=== PATIENT | male | born 1965 | race Caucasian/White ===

== ENCOUNTER 2021-03-13 15:18 | Emergency (ER) | payer BC ==
[~2021-03-13] VITALS: Ht 198.1 cm; Wt 93.9 kg
[2021-03-13 15:24] VITALS: BP 115/59
== END 2021-03-13 16:24 | disposition home or self-care (01) ==
LOC: ED 16:14
DX: U07.1 COVID-19 (principal)
CPT/HCPCS: 71045; 99284; U0003; U0005

== ENCOUNTER 2021-03-18 11:40 | Inpatient (IN) | payer BC ==
[~2021-03-18] VITALS: Ht 190.5 cm; Wt 92.2 kg
--- NOTE | 2021-03-18 12:11 | NUR ---
PORT PURSER: PT PLACED ON O2 IN THE LOBBY DUE TO SPO2 88%
[2021-03-18 13:24] LABS: BASOPHILS % (AUTO) 0 % (0-1); EOSINOPHILS % (AUTO) 0 % (1-7); LYMPHOCYTES % (AUTO) 3 % (22-44); MEAN CORPUSCULAR HEMOGLOBIN 31.1 pg (27.5-34.5); MEAN CORPUSCULAR HGB CONC 33.9 g/dL (33.2-36.2); MEAN PLATELET VOLUME 8.8 fL (7.4-10.4); MONOCYTES % (AUTO) 4 % (2-9); NEUTROPHILS % (AUTO) 93 % (42-75); PLATELET COUNT 260 x10^3/uL (130-400); RED BLOOD COUNT 5.12 x10^6/uL (4.38-5.82); RED CELL DISTRIBUTION WIDTH 13.7 % (9.4-14.8)
[2021-03-18 13:26] LABS: PLATELET (DIC) 253 x10^3/uL (130-400)
[2021-03-18 13:35] LABS: ALBUMIN 2.7 g/dL (3.4-5.0); ANION GAP 10 mmol/L (5-15); CALCIUM 8.8 mg/dL (8.5-10.1); CHLORIDE 102 mmol/L (98-107)
[2021-03-18 13:37] LABS: D-DIMER (DIC) 0.63 ug/mlFEU (0.00-0.52); PROTIME 10.9 Seconds (9.6-11.5); PTT 29 Seconds (25-31)
[2021-03-18 13:40] LABS: FIBRINOGEN > 713 mg/dL (200-340)
--- NOTE | 2021-03-18 13:40 | NUR ---
SUPPLY CHAIN INTERN: PT TO ROOM FROM LOBBY VIA W/C. PLACE ON 2L NC, AUTO PULSE OX AND AUTO BP.
--- NOTE | 2021-03-18 13:45 | NUR ---
THIS IS A 55 YO M DX W/ COVID LAST MONDAY. PT REPORTS MONITORING O2 SATS AT HOME, BECAME HYPOXIC TODAY 86-88% RA W/ INCREASED IN SOB. DENIES AN MEDICAL HX OR HOME MEDS. PT REQUIRING 2L NC TO MAINAIN O2 SAT >90%.
--- NOTE | 2021-03-18 13:50 | NUR ---
AT BEDSIDE. PT RESTING ON GURENY W/ CALL LIGHT IN REACH AND SIDE RAILS UPX2. RESP EVEN AND UNLABORED, YOUNG.
[2021-03-18 13:54] LABS: ALANINE AMINOTRANSFERASE 320 U/L (12-78); ALKALINE PHOSPHATASE 271 U/L (45-117); BILIRUBIN,TOTAL 1.3 mg/dL (0.2-1.0); CREATININE 1.06 mg/dL (0.7-1.3); TOTAL PROTEIN 7.8 g/dL (6.4-8.2)
[2021-03-18] MEDS ORDERED: DEXAMETHASONE 4 MG/ML, 1ML IV ONE (14:00)
[2021-03-18] MEDS ORDERED: DEXAMETHASONE 4 MG/ML, 5ML ONE (14:12)
--- NOTE | 2021-03-18 14:25 | NUR ---
RACHEL SPOUSE [phone] OK TO CALL W/ UPDATES.
--- NOTE | 2021-03-18 14:47 | NUR ---
REPOR TO [facility]AN [facility]. WILL CALL WHEN ROOM IS READY FOR PT. PT RESTING ON GURNEY W/ CALL LIGHT IN REACH AND SIDE RAILS UPX2. RESP EVEN AND UNLABORED, YOUNG.
[2021-03-18] MEDS ORDERED: REMDESIVIR 200 MG in SODIUM CHLORIDE 0.9% 100 ML IVPB ONE (15:00)
[2021-03-18] MEDS ORDERED: DEXAMETHASONE 4 MG/ML, 1ML IVPush SCH (15:30)
[2021-03-18] MEDS ORDERED: ENALAPRILAT 1.25 MG/ML, 2ML IVPush PRN (15:30)
[2021-03-18] MEDS ORDERED: ACETAMINOPHEN 325 MG TABLET PO PRN (15:30)
[2021-03-18 16:04] VITALS: BP 116/74
[2021-03-18] MEDS: DOXYCYCLINE 100MG TABLET PO SCH ×2 (17:33→21:43)
[2021-03-18] MEDS: ENOXAPARIN 40 MG/0.4 ML SQ SCH (17:34)
[2021-03-18] MEDS: CEFTRIAXONE 2 GM in DEXTROSE 5% 50 ML IVPB SCH (18:48)
[2021-03-18] MEDS: ASCORBIC ACID 500 MG TABLET PO SCH (18:50)
[2021-03-18] MEDS: ZINC SULFATE 220 MG CAPSULE PO SCH (18:50)
[2021-03-18] MEDS: CHOLECALCIFEROL 5,000u TAB PO SCH (18:50)
[2021-03-18 20:24] VITALS: BP 138/84
[2021-03-19] VITALS (7 sets, daily range): BP systolic 105–118; BP diastolic 66–73
[2021-03-19 05:59] LABS: CHLORIDE 102 mmol/L (98-107)
[2021-03-19 06:05] LABS: ALANINE AMINOTRANSFERASE 312 U/L (12-78); ALBUMIN 0.1 g/dL (3.4-5.0); ALKALINE PHOSPHATASE 283 U/L (45-117); ANION GAP 20 mmol/L (5-15); BILIRUBIN,TOTAL 0.8 mg/dL (0.2-1.0); TOTAL PROTEIN 6.7 g/dL (6.4-8.2)
[2021-03-19 06:30] LABS: CALCIUM 8.6 mg/dL (8.5-10.1)
[2021-03-19 08:44] LABS: BASOPHILS % (AUTO) 0 % (0-1); EOSINOPHILS % (AUTO) 0 % (1-7); LYMPHOCYTES % (AUTO) 5 % (22-44); MEAN CORPUSCULAR HEMOGLOBIN 31.5 pg (27.5-34.5); MEAN CORPUSCULAR HGB CONC 34.1 g/dL (33.2-36.2); MEAN PLATELET VOLUME 8.8 fL (7.4-10.4); MONOCYTES % (AUTO) 8 % (2-9); NEUTROPHILS % (AUTO) 87 % (42-75); PLATELET COUNT 285 x10^3/uL (130-400); RED BLOOD COUNT 4.82 x10^6/uL (4.38-5.82)
[2021-03-19 08:47] LABS: HCT (SEDRATE) 44.7 % (39.2-51.8)
[2021-03-19] MEDS: ZINC SULFATE 220 MG CAPSULE PO SCH (08:48)
[2021-03-19] MEDS: ASCORBIC ACID 500 MG TABLET PO SCH ×2 (08:48→17:52)
[2021-03-19] MEDS: CHOLECALCIFEROL 5,000u TAB PO SCH (08:49)
[2021-03-19] MEDS: DEXAMETHASONE 4 MG/ML, 1ML IVPush SCH (08:49)
[2021-03-19] MEDS: DOXYCYCLINE 100MG TABLET PO SCH ×2 (08:49→20:53)
[2021-03-19] MEDS ORDERED: DEXAMETHASONE 4 MG/ML, 1ML IVPush SCH (09:00)
[2021-03-19 09:14] LABS: D-DIMER 0.49 ug/mlFEU (0.00-0.52)
[2021-03-19] MEDS: ONDANSETRON 2MG/ML, 2ML IVPush PRN (09:16)
[2021-03-19 09:26] LABS: FIBRINOGEN > 713 mg/dL (200-340)
[2021-03-19] MEDS: REMDESIVIR 100 MG in SODIUM CHLORIDE 0.9% 100 ML IVPB SCH (15:06)
[2021-03-19] MEDS: ENOXAPARIN 40 MG/0.4 ML SQ SCH (15:07)
[2021-03-19] MEDS: CEFTRIAXONE 2 GM in DEXTROSE 5% 50 ML IVPB SCH (20:53)
[2021-03-20 00:08] VITALS: BP 102/64
[2021-03-20 06:36] LABS: CHLORIDE 104 mmol/L (98-107)
[2021-03-20 06:40] LABS: BASOPHILS % (AUTO) 0 % (0-1); EOSINOPHILS % (AUTO) 0 % (1-7); LYMPHOCYTES % (AUTO) 9 % (22-44); MEAN CORPUSCULAR HEMOGLOBIN 31.2 pg (27.5-34.5); MEAN CORPUSCULAR HGB CONC 33.8 g/dL (33.2-36.2); MEAN PLATELET VOLUME 9.2 fL (7.4-10.4); MONOCYTES % (AUTO) 11 % (2-9); NEUTROPHILS % (AUTO) 80 % (42-75); PLATELET COUNT 289 x10^3/uL (130-400); RED BLOOD COUNT 4.85 x10^6/uL (4.38-5.82); RED CELL DISTRIBUTION WIDTH 13.9 % (9.4-14.8)
[2021-03-20 06:48] LABS: ALANINE AMINOTRANSFERASE 199 U/L (12-78); ALBUMIN 2.3 g/dL (3.4-5.0); ALKALINE PHOSPHATASE 231 U/L (45-117); ANION GAP 9 mmol/L (5-15); BILIRUBIN,TOTAL 0.6 mg/dL (0.2-1.0); CALCIUM 8.9 mg/dL (8.5-10.1); CREATININE 0.94 mg/dL (0.7-1.3); HCT (SEDRATE) 44.9 % (39.2-51.8); TOTAL PROTEIN 6.7 g/dL (6.4-8.2)
[2021-03-20 06:49] LABS: D-DIMER 0.51 ug/mlFEU (0.00-0.52)
[2021-03-20 06:52] LABS: FIBRINOGEN > 713 mg/dL (200-340)
[2021-03-20 06:53] LABS: C-REACTIVE PROTEIN, QUANT 8.9 mg/dL (0.02-0.49)
[2021-03-20 07:37] VITALS: BP 110/68
[2021-03-20] MEDS: ASCORBIC ACID 500 MG TABLET PO SCH ×2 (07:44→16:17)
[2021-03-20] MEDS: DEXAMETHASONE 4 MG/ML, 1ML IVPush SCH (07:44)
[2021-03-20] MEDS: ZINC SULFATE 220 MG CAPSULE PO SCH (07:44)
[2021-03-20] MEDS: DOXYCYCLINE 100MG TABLET PO SCH ×2 (07:44→20:21)
[2021-03-20] MEDS: CHOLECALCIFEROL 5,000u TAB PO SCH (07:44)
[2021-03-20 12:48] VITALS: BP 97/61
[2021-03-20] MEDS: REMDESIVIR 100 MG in SODIUM CHLORIDE 0.9% 100 ML IVPB SCH (16:17)
[2021-03-20] MEDS: ENOXAPARIN 40 MG/0.4 ML SQ SCH (16:17)
[2021-03-20 16:25] VITALS: BP 111/68
[2021-03-20 19:16] VITALS: BP 103/67
[2021-03-20] MEDS: CEFTRIAXONE 2 GM in DEXTROSE 5% 50 ML IVPB SCH (20:21)
[2021-03-21 00:02] VITALS: BP 107/69
[2021-03-21 04:00] VITALS: BP 106/71
[2021-03-21 06:08] LABS: ALBUMIN 2.2 g/dL (3.4-5.0); ANION GAP 6 mmol/L (5-15); CALCIUM 8.6 mg/dL (8.5-10.1); CHLORIDE 105 mmol/L (98-107)
[2021-03-21 06:12] LABS: ALANINE AMINOTRANSFERASE 146 U/L (12-78); ALKALINE PHOSPHATASE 186 U/L (45-117); BILIRUBIN,TOTAL 0.5 mg/dL (0.2-1.0); CREATININE 0.74 mg/dL (0.7-1.3); TOTAL PROTEIN 6.5 g/dL (6.4-8.2)
[2021-03-21] MEDS: DOXYCYCLINE 100MG TABLET PO SCH ×2 (08:13→20:15)
[2021-03-21] MEDS: CHOLECALCIFEROL 5,000u TAB PO SCH (08:13)
[2021-03-21] MEDS: ZINC SULFATE 220 MG CAPSULE PO SCH (08:13)
[2021-03-21] MEDS: ASCORBIC ACID 500 MG TABLET PO SCH ×2 (08:13→17:29)
[2021-03-21] MEDS: DEXAMETHASONE 4 MG/ML, 1ML IVPush SCH (08:14)
[2021-03-21 08:17] VITALS: BP 108/70
[2021-03-21] MEDS: ONDANSETRON 2MG/ML, 2ML IVPush PRN (08:25)
[2021-03-21 08:50] LABS: BASOPHILS % (AUTO) 0 % (0-1); EOSINOPHILS % (AUTO) 1 % (1-7); LYMPHOCYTES % (AUTO) 17 % (22-44); MEAN CORPUSCULAR HEMOGLOBIN 31.5 pg (27.5-34.5); MEAN CORPUSCULAR HGB CONC 34.3 g/dL (33.2-36.2); MEAN PLATELET VOLUME 8.7 fL (7.4-10.4); MONOCYTES % (AUTO) 14 % (2-9); NEUTROPHILS % (AUTO) 68 % (42-75); PLATELET COUNT 288 x10^3/uL (130-400); RED BLOOD COUNT 4.91 x10^6/uL (4.38-5.82)
[2021-03-21 09:05] LABS: C-REACTIVE PROTEIN, QUANT 4.8 mg/dL (0.02-0.49)
[2021-03-21 09:09] LABS: HCT (SEDRATE) 45.2 % (39.2-51.8)
[2021-03-21] MEDS: BENZONATATE 100 MG CAPSULE PO PRN ×2 (12:35→22:11)
[2021-03-21] MEDS: GUAIFENESIN/DM 200-20MG, 10ML UDC PO PRN ×2 (12:35→22:11)
[2021-03-21] MEDS: ENOXAPARIN 40 MG/0.4 ML SQ SCH (15:27)
[2021-03-21] MEDS: REMDESIVIR 100 MG in SODIUM CHLORIDE 0.9% 100 ML IVPB SCH (15:27)
[2021-03-21 15:32] VITALS: BP 110/68
[2021-03-21] MEDS: CEFTRIAXONE 2 GM in DEXTROSE 5% 50 ML IVPB SCH (20:14)
[2021-03-21 20:24] VITALS: BP 115/76
[2021-03-22 00:43] VITALS: BP 103/72
[2021-03-22 06:57] LABS: ALBUMIN 2.3 g/dL (3.4-5.0); ANION GAP 8 mmol/L (5-15); CALCIUM 8.5 mg/dL (8.5-10.1); CHLORIDE 105 mmol/L (98-107)
[2021-03-22 07:01] LABS: ALANINE AMINOTRANSFERASE 116 U/L (12-78); ALKALINE PHOSPHATASE 167 U/L (45-117); BILIRUBIN,TOTAL 0.7 mg/dL (0.2-1.0); CREATININE 0.81 mg/dL (0.7-1.3); TOTAL PROTEIN 6.5 g/dL (6.4-8.2)
[2021-03-22 08:00] VITALS: BP 112/73
[2021-03-22] MEDS: DOXYCYCLINE 100MG TABLET PO SCH ×2 (09:51→22:12)
[2021-03-22] MEDS: ZINC SULFATE 220 MG CAPSULE PO SCH (09:51)
[2021-03-22] MEDS: ASCORBIC ACID 500 MG TABLET PO SCH ×2 (09:51→18:52)
[2021-03-22] MEDS: DEXAMETHASONE 4 MG/ML, 1ML IVPush SCH (09:51)
[2021-03-22] MEDS: CHOLECALCIFEROL 5,000u TAB PO SCH (09:52)
[2021-03-22 14:00] VITALS: BP 107/63
[2021-03-22] MEDS: REMDESIVIR 100 MG in SODIUM CHLORIDE 0.9% 100 ML IVPB SCH (16:20)
[2021-03-22] MEDS: ENOXAPARIN 40 MG/0.4 ML SQ SCH (16:21)
[2021-03-22 19:09] VITALS: BP 114/74
[2021-03-22] MEDS: CEFTRIAXONE 2 GM in DEXTROSE 5% 50 ML IVPB SCH (22:12)
[2021-03-23 00:27] VITALS: BP 98/62
[2021-03-23 07:39] VITALS: BP 97/60
[2021-03-23] MEDS: CHOLECALCIFEROL 5,000u TAB PO SCH (09:00)
[2021-03-23] MEDS: ZINC SULFATE 220 MG CAPSULE PO SCH (09:05)
[2021-03-23] MEDS: DOXYCYCLINE 100MG TABLET PO SCH (09:05)
[2021-03-23] MEDS: DEXAMETHASONE 4 MG/ML, 1ML IVPush SCH (09:05)
[2021-03-23] MEDS: ASCORBIC ACID 500 MG TABLET PO SCH ×2 (09:05→17:42)
[2021-03-23] MEDS ORDERED: BENZ-17 PO (09:33)
[2021-03-23] MEDS ORDERED: ASCO500T9 PO (09:33)
[2021-03-23] MEDS ORDERED: CHOL500045 PO (09:33)
[2021-03-23] MEDS ORDERED: CEFD300C37 PO (09:33)
[2021-03-23] MEDS ORDERED: DOXY100T PO (09:33)
[2021-03-23] MEDS ORDERED: ZINC220C8 PO (09:33)
[2021-03-23 12:32] VITALS: BP 107/69
[2021-03-23] MEDS: ENOXAPARIN 40 MG/0.4 ML SQ SCH (17:42)
== END 2021-03-23 19:34 | disposition home or self-care (01) | DRG 177 ==
LOC: ED 14:06 → 3N 15:00
PROVIDERS: ADMIT Family Medicine; ATTEND Hospitalist
PROC: XW033E5 Introduction of Remdesivir Anti-infective into Peripheral Vein, Percutaneous Approach, New Technology Group 5 (ICD-10-PCS; principal; 2021-03-18)
DX: U07.1 COVID-19 (principal); J12.82 Pneumonia due to coronavirus disease 2019; J96.01 Acute respiratory failure with hypoxia; R74.01 Elevation of levels of liver transaminase levels; Z28.3 Underimmunization status
CPT/HCPCS: 36415; 71045; 80053; 82728; 83605; 83615; 83735; 83880; 84100; 84145; 85025; 85049; 85379; 85384; 85610; 85651; 85730; 86140; 87040; 96374; 99285; G0378; J0696; J1100; J1650; J2405